=== PATIENT | female | born 1965 | race Asian ===

== ENCOUNTER 2021-03-13 18:11 | Emergency (ER) | payer BC, MEDICAID ==
[~2021-03-13] VITALS: Ht 157.5 cm; Wt 63.5 kg
--- NOTE | 2021-03-13 18:43 | NUR ---
Dr Glover at the bedside for MSE.
[2021-03-13] MEDS ORDERED: ONDANSETRON 4 MG/2 ML VIAL IV ONE (19:00)
[2021-03-13] MEDS ORDERED: IV NORMAL SALINE 1000 ML BAG IV ONE (19:00)
[2021-03-13] MEDS ORDERED: ONDANSETRON 4 MG/2 ML VIAL ONE (19:06)
[2021-03-13 19:32] LABS: HEMATOCRIT 45.7 % (31.2-41.9); MEAN CORPUSCULAR HEMOGLOBIN 31.2 uug (24.7-32.8); PLATELET COUNT (AUTO) 240 K/uL (179-408)
[2021-03-13 19:44] LABS: CREATININE 1.4 mg/dL (0.6-1.3); POTASSIUM 5.3 mmol/L (3.5-5.1)
[2021-03-13 19:49] LABS: BILIRUBIN,DIRECT 0.2 mg/dL (0.0-0.2); TOTAL PROTEIN, SERUM 9.9 g/dL (6.4-8.2)
[2021-03-13] MEDS ORDERED: levoFLOXacin 500 MG/D5W 100ML PIGGYBACK IV ONE (20:00)
[2021-03-13] MEDS ORDERED: IV NS 1000 ML 1,000 ML IV ONE (20:30)
[2021-03-13 20:35] LABS: *BILIRUBIN,URIN NEGATIVE (NEGATIVE); *BLOOD, URINE TRACE (NEGATIVE); *COLOR,URINE YELLOW (YELLOW); *KETONES,URINE NEGATIVE (NEGATIVE); *UROBILINOGEN,URINE 0.2 E.U./dl (NORMAL); LEUKOCYTE ESTERASE ,URINE 1+ (NEGATIVE); NITRITE, URINE POSITIVE (NEGATIVE); PH,URINE 5.5 (5.0-8.0); UGLUCOSE NEGATIVE (NEGATIVE)
[2021-03-13] MEDS ORDERED: levoFLOXacin 500 MG/D5W 100 ML ONE (20:38)
[2021-03-13 20:40] LABS: *CLARITY,URINE CLOUDY (CLEAR); BACTERIA,URINE MANY /HPF (NONE SEEN); SQUAMOUS EPITHELIAL CELL,UR MODERATE /HPF (NONE SEEN)
[2021-03-13] MEDS ORDERED: OXYC-128 PO (21:41)
[2021-03-13] MEDS ORDERED: ONDA4TAB5 GT (21:41)
[2021-03-13] MEDS ORDERED: LEVO250T59 PO (21:41)
--- NOTE | 2021-03-13 21:45 | NUR ---
PATIENT ABLE TO TOLERATE PO INTAKE WITH N/V NOTED
[2021-03-13 22:18] VITALS: BP 140/82
--- NOTE | 2021-03-13 22:18 | NUR ---
IV removed. Catheter intact and site benign. Pressure and 4x4 gauze applied to site. No bleeding noted.
--- NOTE | 2021-03-13 22:20 | NUR ---
Patient discharged to home in stable condition WITH DAUGHTER TAKING PATIENT HOME. Written and verbal after care instructions given. Patient verbalizes understanding of instructions. Stressed follow up or return to ER for worsening s/s.
== END 2021-03-13 22:20 | disposition home or self-care (01) ==
LOC: EDBD 18:13 → ER 18:13
DX: A04.9 Bacterial intestinal infection, unspecified (principal); K80.20 Calculus of gallbladder without cholecystitis without obstruction; E86.0 Dehydration; R03.0 Elevated blood-pressure reading, without diagnosis of hypertension
CPT/HCPCS: 36415; 74018; 76705; 80048; 80076; 81001; 85025; 87086; 96361; 96365; 96375; 99284; J1956; J2405; 87077; A4663; J7030